=== PATIENT | female | born 1980 | race Caucasian/White ===

== ENCOUNTER 2023-01-18 13:27 | Inpatient (IN) | payer OTHER ==
[2023-01-18 14:24] VITALS: BMI 21.9
[2023-01-18] MEDS ORDERED: NALOXONE HCL (KLOXXADO) 8 MG SPRAY NS PRN (15:50)
[2023-01-18] MEDS ORDERED: IBUPROFEN 400 MG TABLET (FP) PO PRN (15:50)
[2023-01-18] MEDS ORDERED: POLYETHYLENE GLYCOL (HEALTHYLAX) 3350 17 GM PACKET PO PRN (15:50)
[2023-01-18] MEDS ORDERED: BENZOCAINE/MENTHOL (CHLORASEPTIC ) LOZENGE MM PRN (15:50)
[2023-01-18] MEDS ORDERED: DICYCLOMINE HCL 10 MG CAPSULE PO PRN (15:50)
[2023-01-18] MEDS ORDERED: ACETAMINOPHEN 325 MG TABLET (FP) PO PRN ×2 (15:50)
[2023-01-18] MEDS ORDERED: NICOTINE 10 MG CARTRIDGE (INHALER) IH PRN (15:50)
[2023-01-18] MEDS ORDERED: NICOTINE 14 MG/24 HOURS TOPICAL PATCH TD PRN (15:50)
[2023-01-18] MEDS ORDERED: LOPERAMIDE HCL 2 MG CAPSULE PO PRN (15:50)
[2023-01-18] MEDS ORDERED: ONDANSETRON *ODT* 4 MG TABLET SL PRN (15:50)
[2023-01-18] MEDS ORDERED: MAGNESIUM HYDROX 2400MG/30ML ORAL SUSPENSION 30 ML CUP PO PRN (15:50)
[2023-01-18] MEDS ORDERED: BISMUTH SUBSALICYLATE 524 MG/30 ML PO PRN (15:50)
[2023-01-18] MEDS ORDERED: MAG HYDROX/AL HYDROX/SIMETH 30 ML UNIT-DOSE CUP ONE (16:38)
[2023-01-18] MEDS ORDERED: PRENATAL VITAMINS W/ FOLIC ACID TABLET (FP) PO ONE (16:39)
[2023-01-18] MEDS: MAG HYDROX/AL HYDROX/SIMETH 30 ML UNIT-DOSE CUP PO PRN (16:43)
[2023-01-18] MEDS: PRENATAL VITAMINS W/ FOLIC ACID TABLET (FP) PO SCH (16:43)
[2023-01-18] MEDS: hydrOXYzine PAMOATE 25 MG CAPSULE (FP) PO PRN (18:28)
[2023-01-18] MEDS: METHOCARBAMOL 500 MG TABLET PO PRN (18:28)
[2023-01-18] MEDS ORDERED: TRIMETHOBENZAMIDE HCL 200MG/2ML INJ IM ONE (19:49)
[2023-01-18] MEDS: THIAMINE HCL 100 MG TABLET (FP) PO SCH (21:54)
[2023-01-18] MEDS: MELATONIN 5 MG TABLETS PO SCH (21:54)
[2023-01-19] MEDS: METHOCARBAMOL 500 MG TABLET PO PRN (02:05)
[2023-01-19] MEDS: IBUPROFEN 600 MG TABLET (FP) PO PRN (02:05)
[2023-01-19] MEDS ORDERED: diazePAM 5 MG TABLET PO SCH (05:00)
[2023-01-19] MEDS: hydrOXYzine PAMOATE 25 MG CAPSULE (FP) PO PRN (05:59)
[2023-01-19] MEDS ORDERED: methaDONE HCL 10 MG TABLET (FOR DETOX USE ONLY) PO ONE ×2 (06:18→10:00)
[2023-01-19 11:02] LABS: CALCIUM 7.7 mg/dL (8.5-10.1)
[2023-01-19 11:03] LABS: ALBUMIN 2.3 g/dl (3.4-5.0); BLOOD UREA NITROGEN 13.2 mg/dL (7-18)
[2023-01-19] MEDS: cloNIDine HCL 0.1 MG TABLET PO PRN (11:04)
[2023-01-19] MEDS: PRENATAL VITAMINS W/ FOLIC ACID TABLET (FP) PO SCH (11:05)
[2023-01-19] MEDS: diazePAM 5 MG TABLET PO PRN ×3 (11:05→22:25)
[2023-01-19 11:06] LABS: CREATININE 0.7 mg/dL (0.55-1.3)
[2023-01-19 11:08] LABS: BILIRUBIN,TOTAL 0.3 mg/dL (0.2-1)
[2023-01-19 12:29] LABS: HEMOGLOBIN 7.6 GM/dL (10.7-15.3); MCHC 28.1 g/dl (32.0-36.0); MEAN CELL VOLUME 57.2 fl (80-96); MEAN PLT VOLUME 8.4 fl (7.5-11.1); PLATELET COUNT 445 10^3/uL (134-434); RBC 4.73 M/mm3 (3.60-5.2); RDW 20.8 % (11.6-15.6)
[2023-01-19 12:36] LABS: MCH 16.1 pg (25.7-33.7)
[2023-01-19 14:01] LABS: HIV INTERPRETATION NEGATIVE (NEGATIVE)
[2023-01-19] MEDS: MAG HYDROX/AL HYDROX/SIMETH 30 ML UNIT-DOSE CUP PO PRN (15:13)
[2023-01-19] MEDS: MELATONIN 5 MG TABLETS PO SCH (22:25)
[2023-01-19] MEDS: THIAMINE HCL 100 MG TABLET (FP) PO SCH (22:25)
[2023-01-20] MEDS ORDERED: diazePAM 5 MG TABLET PO SCH (06:00)
[2023-01-20] MEDS ORDERED: TRIMETHOBENZAMIDE HCL 200MG/2ML INJ IM ONE (09:32)
[2023-01-20] MEDS: PRENATAL VITAMINS W/ FOLIC ACID TABLET (FP) PO SCH (09:58)
[2023-01-20] MEDS: diazePAM 5 MG TABLET PO PRN ×2 (09:58→22:15)
[2023-01-20] MEDS: MAG HYDROX/AL HYDROX/SIMETH 30 ML UNIT-DOSE CUP PO PRN ×3 (10:50→23:14)
[2023-01-20] MEDS ORDERED: ONDANSETRON 4 MG/2 ML VIAL IM ONE (10:55)
[2023-01-20] MEDS ORDERED: ONDANSETRON *ODT* 4 MG TABLET SL ONE (11:30)
[2023-01-20] MEDS: THIAMINE HCL 100 MG TABLET (FP) PO SCH (22:15)
[2023-01-20] MEDS: MELATONIN 5 MG TABLETS PO SCH (22:15)
[2023-01-21] MEDS ORDERED: diazePAM 5 MG TABLET PO SCH (06:00)
[2023-01-21] MEDS: cloNIDine HCL 0.1 MG TABLET PO PRN (06:01)
[2023-01-21] MEDS ORDERED: methaDONE HCL 10 MG TABLET (FOR DETOX USE ONLY) PO ONE (10:00)
[2023-01-21] MEDS: PRENATAL VITAMINS W/ FOLIC ACID TABLET (FP) PO SCH (10:45)
[2023-01-21] MEDS: MAG HYDROX/AL HYDROX/SIMETH 30 ML UNIT-DOSE CUP PO PRN (16:48)
[2023-01-21] MEDS: FERROUS SO4 325 MG TABLET (FP) PO SCH (17:36)
[2023-01-21] MEDS: IBUPROFEN 600 MG TABLET (FP) PO PRN (17:38)
[2023-01-21] MEDS: ASCORBIC ACID 500 MG TABLET (FP) PO SCH (18:13)
[2023-01-21] MEDS: MELATONIN 5 MG TABLETS PO SCH (22:22)
[2023-01-21] MEDS: THIAMINE HCL 100 MG TABLET (FP) PO SCH (22:22)
[2023-01-22] MEDS: MAG HYDROX/AL HYDROX/SIMETH 30 ML UNIT-DOSE CUP PO PRN ×2 (04:55→10:34)
[2023-01-22] MEDS ORDERED: diazePAM 5 MG TABLET PO ONE (06:00)
[2023-01-22] MEDS: FERROUS SO4 325 MG TABLET (FP) PO SCH ×3 (07:10→16:31)
[2023-01-22 09:44] LABS: BASO % 1.4 % (0-2.0); EOS % 2.1 % (0-4.5); HEMATOCRIT 23.6 % (32.4-45.2); LYMPH % 11.3 % (8-40); MCHC 28.4 g/dl (32.0-36.0); MEAN CELL VOLUME 58.9 fl (80-96); MEAN PLT VOLUME 8.5 fl (7.5-11.1); MONO % 6.7 % (3.8-10.2); NEUT % 78.5 % (42.8-82.8); PLATELET COUNT 440 10^3/uL (134-434); RDW 21.6 % (11.6-15.6); WHITE BLOOD COUNT 8.3 K/mm3 (4.0-10.0)
[2023-01-22 09:50] LABS: MCH 16.7 pg (25.7-33.7)
[2023-01-22 09:53] LABS: HEMOGLOBIN 6.7 GM/dL (10.7-15.3)
[2023-01-22] MEDS: PRENATAL VITAMINS W/ FOLIC ACID TABLET (FP) PO SCH (10:27)
[2023-01-22] MEDS: ASCORBIC ACID 500 MG TABLET (FP) PO SCH (10:27)
[2023-01-22 10:45] VITALS: BP 130/74; PULSE 110; RESP 18; TEMP 98.7
[2023-01-22 11:22] LABS: ANISOCYTOSIS 2+; MACROCYTOSIS 0
[2023-01-22] MEDS: MELATONIN 5 MG TABLETS PO SCH (22:59)
[2023-01-22] MEDS: THIAMINE HCL 100 MG TABLET (FP) PO SCH (22:59)
[2023-01-23] MEDS ORDERED: methaDONE HCL 10 MG TABLET (FOR DETOX USE ONLY) PO ONE (10:00)
== END 2023-01-22 23:58 | disposition short-term general hospital (02) | DRG 773 ==
LOC: YASAS 13:27 → Y3N 17:25
PROVIDERS: ADMIT Allergy & Immunology; ATTEND Surgery
PROC: HZ2ZZZZ Detoxification Services for Substance Abuse Treatment (ICD-10-PCS; principal; 2023-01-18)
DX: F11.23 Opioid dependence with withdrawal (principal); F10.230 Alcohol dependence with withdrawal, uncomplicated; F14.20 Cocaine dependence, uncomplicated; F17.210 Nicotine dependence, cigarettes, uncomplicated; K21.9 Gastro-esophageal reflux disease without esophagitis; M54.50 Low back pain, unspecified; G89.29 Other chronic pain; Z98.84 Bariatric surgery status
CPT/HCPCS: 36415; 80053; 85025; 85027; 86780; 87389; 93005; 93010; C9803-CS; Q0162; U0003; U0005

== ENCOUNTER 2023-01-22 13:06 | Inpatient (IN) | payer OTHER ==
[2023-01-22] MEDS ORDERED: MAG HYDROX/AL HYDROX/SIMETH 30 ML UNIT-DOSE CUP ONE (14:38)
[2023-01-22 14:52] LABS: EOS % 2.3 % (0-4.5); HEMATOCRIT 24.3 % (32.4-45.2); LYMPH % 10.3 % (8-40); MCHC 28.5 g/dl (32.0-36.0); MEAN PLT VOLUME 8.5 fl (7.5-11.1); MONO % 7.7 % (3.8-10.2); NEUT % 78.7 % (42.8-82.8); PLATELET COUNT 436 10^3/uL (134-434); RBC 4.12 M/mm3 (3.60-5.2); RDW 21.2 % (11.6-15.6); WHITE BLOOD COUNT 9.3 K/mm3 (4.0-10.0)
[2023-01-22 15:00] LABS: INR 0.98 (0.83-1.09); PROTHROMBIN TIME (PATIENT) 11.4 SEC (9.7-13.0)
[2023-01-22 15:02] LABS: ACTIVATED PTT 25.7 SECONDS (25.2-36.5)
[2023-01-22 15:07] VITALS: BP 116/73; PULSE 97; RESP 17; TEMP 99.4; BMI 22.4
[2023-01-22 15:07] LABS: MCH 16.8 pg (25.7-33.7)
[2023-01-22 15:08] LABS: HEMOGLOBIN 6.9 GM/dL (10.7-15.3)
[2023-01-22 15:25] LABS: ALBUMIN 2.3 g/dl (3.4-5.0); BLOOD UREA NITROGEN 17.3 mg/dL (7-18); CALCIUM 7.6 mg/dL (8.5-10.1)
[2023-01-22 15:28] LABS: CREATININE 0.8 mg/dL (0.55-1.3)
[2023-01-22 15:30] LABS: BILIRUBIN,TOTAL 0.2 mg/dL (0.2-1); TOT PROT 6.2 g/dl (6.4-8.2)
[2023-01-22] MEDS ORDERED: HALOPERIDOL LACTATE 5 MG/ML IM ONE (17:29)
[2023-01-22] MEDS ORDERED: LORazepam 2 MG/ML SDV VIAL IM ONE (17:30)
[2023-01-22 17:44] LABS: RETICULOCYTES 1.75 % (0.5-1.5)
== END 2023-01-22 17:52 | disposition left against medical advice (07) | DRG 663 ==
LOC: JER 13:06 → JERBED 16:02 → OBSVTOIN 16:02
PROVIDERS: ADMIT Internal Medicine; ATTEND Internal Medicine
DX: D64.9 Anemia, unspecified (principal); R45.1 Restlessness and agitation; R53.1 Weakness; Z98.84 Bariatric surgery status; K21.9 Gastro-esophageal reflux disease without esophagitis
CPT/HCPCS: 36415; 71045-TC-FY; 80053; 82728; 83540; 83550; 85025; 85045; 85610; 85730; 86850; 86900; 86901; 86922; 99285-25